=== PATIENT | male | born 1995 | race Caucasian/White ===

== ENCOUNTER 2016-07-21 23:37 | Emergency (ER) | payer OTHER, SELFPAY ==
[2016-07-22] MEDS ORDERED: SODIUM SULAMYD EYE DROPS 15 ML OP ONE ×2 (00:09→00:19)
[2016-07-22] MEDS ORDERED: Rocephin 1000 MG INJ IM ONE (00:09)
--- NOTE | 2016-07-22 00:15 | ERPHSYRPT ---
- History of Present Illness Time Seen by Provider: 07/21/16 23:56 Source: patient Exam Limitations: no limitations Patient Subjective Stated Complaint: pt states he started having eye irritation today and got worse throughout the day with swelling, redness and yellow discharge from lt eye. Triage Nursing Assessment: pt alert and oriented, answers questions approp. pt ambulatory with steady gait noted. respirations nonlabored with lungs cta. lt side of face red with swelling noted to lt eye.. tearing and yellow discharge noted from lt eye. Physician History: TODAY PT HAS HAD PROGRESSIVE SWELLING, REDNESS AND YELLOW DISCHARGE FROM THE LEFT EYELIDS; DENIES INJURY, F.B., FEVER, HEADACHE, CHILLS. Allergies/Adverse Reactions: No Known Drug Allergies Allergy (Verified 07/21/16 23:54) Home Medications: No Home Meds 1 ea UD 07/21/16 [History] Hx Tetanus, Diphtheria Vaccination/Date Given: Yes Hx Influenza Vaccination/Date Given: No Hx Pneumococcal Vaccination/Date Given: Yes Immunizations Up to Date: Yes - Review of Systems Constitutional: No Fever Eyes: Other (SWELLING, REDNESS AND YELLOW DISCHARGE OF THE LEFT EYELIDS) Ears, Nose, & Throat: No Throat Pain Respiratory: No Dyspnea Cardiac: No Chest Pain Abdominal/Gastrointestinal: No Nausea, No Vomiting Neurological: No Headache All Other Systems: Reviewed and Negative - Past Medical History Pertinent Past Medical History: No - Past Surgical History Past Surgical History: Yes Other Surgical History: BILATERAL EAR TUBES - Social History Smoking Status: Current every day smoker How long have you smoked: 1 yr Exposure to second hand smoke: Yes Drug Use: none Patient Lives Alone: No - Nursing Vital Signs Nursing Vital Signs: Initial Vital Signs Temperature 98.1 F Temperature Source Oral Pulse Rate 98 Respiratory Rate 16 Blood Pressure [Right Arm] 144/95 Pain Intensity 8 - Physical Exam General Appearance: alert Eye Exam: left eye: conjunctival inflammation (LEFT EYELIDS HAVE CONJUNCTIVAL INJECTION, EDEMA, ERYTHEMA AND YELLOW DISCHARGE.), bilateral eye: PERRL, EOMI Ears, Nose, Throat Exam: pharynx normal, moist mucous membranes, TM abnormal (L ) (LEFT TM ERYTHEMATOUS) Neck Exam: normal inspection Respiratory Exam: lungs clear Cardiovascular Exam: normal heart sounds Gastrointestinal Exam: normal bowel sounds Extremity Exam: No swelling Neurologic: alert, cooperative Skin Exam: warm, dry SpO2 Interpretation: normal SpO2: 96 Oxygen Delivery: Room Air - Course Nursing assessment & vital signs reviewed: Yes Ordered Tests: Medication Summary Discontinued Medications Generic Name Dose Route Start Last Admin Trade Name Hiren PRN Reason Stop Dose Admin Ceftriaxone Sodium 1,000 mg 07/22/16 00:09 Rocephin 1000 Mg Inj IM 07/22/16 00:10 STAT ONE Sulfacetamide Sodium 15 ml 07/22/16 00:09 Sodium Sulamyd Eye Drops 15 Ml OP 07/22/16 00:10 STAT ONE - Departure Time of Disposition: 00:20 Departure Disposition: Home Clinical Impression: PERIORBITAL CELLULITIS OF THE LEFT EYE, LOM Condition: Fair Critical Care Time: No Instructions: Cellulitis -- Adult Additional Instructions: FOLLOW UP WITH PRIVATE DOCTOR TOMORROW. Prescriptions: Cefdinir [Omnicef 300 mg] 300 mg PO BID #20 capsule Sulfacetamide Sodium Ophth [Sodium Sulamyd Eye Drops 15 ml] 2 drops OP TID #1 bottle
[2016-07-22] MEDS ORDERED: Rocephin 1000 MG INJ ONE (00:19)
[2016-07-22] MEDS ORDERED: XYLOCAINE 1% HCL 20 ML MDV ONE (00:20)
[2016-07-22 00:54] VITALS: BP 135/77; PULSE 78; O2SAT 97
== END 2016-07-22 00:48 | disposition home or self-care (01) ==
LOC: ED 23:37
DX: L03.213 Periorbital cellulitis (principal); H66.92 Otitis media, unspecified, left ear
CPT/HCPCS: 96372; 99283; 99284; J0696

== ENCOUNTER 2018-06-24 07:22 | Emergency (ER) | payer OTHER ==
[2018-06-24 07:33] VITALS: PULSE 99; O2SAT 98
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
[2018-06-24] MEDS ORDERED: MOTRIN 600 MG PO ONE (08:16)
[2018-06-24] MEDS ORDERED: MOTRIN 600 MG ONE (08:41)
[2018-06-24] MEDS ORDERED: BACIGUENT PACKET TP ONE (09:10)
[2018-06-24] MEDS ORDERED: BACIGUENT PACKET ONE (09:21)
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
[2018-06-24 09:54] VITALS: BP 137/64
== END 2018-06-24 09:56 | disposition home or self-care (01) ==
LOC: ED 07:22
DX: S16.1XXA Strain of muscle, fascia and tendon at neck level, initial encounter (principal); S96.911A Strain of unspecified muscle and tendon at ankle and foot level, right foot, initial encounter; M54.2 Cervicalgia; M25.571 Pain in right ankle and joints of right foot; V89.2XXA Person injured in unspecified motor-vehicle accident, traffic, initial encounter; Z72.0 Tobacco use
CPT/HCPCS: 36415; 72040; 73610; 80307; 99285; L0120; A9270-GY; G0480